=== PATIENT | female | born 1985 | race Caucasian/White ===

== ENCOUNTER → 2018-11-30 | Outpatient (CLI) | payer OTHER ==
[2018-11-30 18:29] LABS: BASO % 0.4 % (0.0-1.0); EOS # 0.3 10^3/uL (0.0-0.50); EOS % 4.9 % (0.0-3.0); HEMATOCRIT 36.5 % (36.0-47.0); HEMOGLOBIN 11.5 g/dl (12.0-15.5); LYMPH # 0.9 10^3/uL (1.5-4.5); LYMPH % 16.4 % (24.0-44.0); MEAN CORPUSCULAR HEMOGLOBIN 29.3 pg (27.0-33.0); MEAN CORPUSCULAR HGB CONC 31.5 g/dl (32.0-36.5); MEAN CORPUSCULAR VOLUME 93.1 fl (80.0-96.0); MONO # 0.4 10^3/uL (0.0-0.8); MONO % 7.2 % (0.0-5.0); NEUTROPHILS % 70.6 % (36.0-66.0); PLATELET COUNT, AUTOMATED 189 10^3/uL (150-450); RED BLOOD COUNT 3.92 10^6/uL (4.00-5.40); WHITE BLOOD COUNT 5.7 10^3/uL (4.0-10.0)
[2018-11-30 21:37] LABS: CHLAMYDIA DNA AMPLIFICATION NEGATIVE (NEGATIVE); GC DNA AMPLIFICATION NEGATIVE (NEGATIVE)
[2018-12-01 12:43] LABS: HIV 1&2 SCREEN CENTAUR NEGATIVE (NEGATIVE); RUBELLA IgG QUALITATIVE IMMUNE (IMMUNE)
[2018-12-01 12:47] LABS: HEPATITIS C VIRUS ABY INDEX > 11.0 INDEX (<0.8)
== END ==
LOC: M SMT 14:05
PROVIDERS: ATTEND Advanced Practice Midwife
DX: Z34.82 Encounter for supervision of other normal pregnancy, second trimester (principal); Z36.89 Encounter for other specified antenatal screening

== ENCOUNTER → 2018-12-04 | Outpatient (CLI) | payer OTHER ==
--- NOTE | 2018-12-05 05:22 | REP ---
Clinical: Anatomical evaluation. Comparison: None . Findings: Examination demonstrates a single live intrauterine in cephalic presentation. motion is identified by technologist. Placenta is noted fundal and grade one without evidence for placenta previa or abruption. Amniotic fluid volume is normal. Cervix measures 3.6 cm in length and appears closed. No evidence for nuchal cord. Gestational age by LMP 24 weeks 0 days with MOLLY 03/26/2019 . Gestational age by current measurements 24 weeks 1 day with MOLLY eight 03/25/2019 . FHR equals 147 beats per minute. BPD 5.8 cm 23 weeks 4-day HC 22.0 cm 24 weeks 0 days AC 20.0 cm 24 weeks 5-day FL 4.2 cm 23 weeks 5 days HL 4.1 cm 24 weeks 4 days HC/AC ratio 1.10 Estimated weight 670 grams ( 50th percentile). Anatomical assessment demonstrates normal structures including cranium, choroid plexus, cavum, cerebellum/posterior fossa, facial features, lungs, diaphragm, stomach, cord insertion/three-vessel cord, kidneys/bladder, and extremities. Limited evaluation of the heart/ventricular outflow tracts and spine noted. Impression: 1. Single live intrauterine in cephalic presentation demonstrating appropriate interval growth. 2. Anatomical limitations as noted above. Electronically Signed by Elie Perez MD 12/05/2018 05:13 A
== END ==
LOC: M RAD 14:19
PROVIDERS: ATTEND Advanced Practice Midwife
DX: Z34.82 Encounter for supervision of other normal pregnancy, second trimester (principal); Z3A.24 24 weeks gestation of pregnancy

== ENCOUNTER → 2019-01-02 | Outpatient (CLI) | payer OTHER ==
[2019-01-02 17:51] LABS: HEMATOCRIT 36.5 % (36.0-47.0); HEMOGLOBIN 11.7 g/dl (12.0-15.5); MEAN CORPUSCULAR HEMOGLOBIN 29.5 pg (27.0-33.0); MEAN CORPUSCULAR HGB CONC 32.1 g/dl (32.0-36.5); MEAN CORPUSCULAR VOLUME 91.9 fl (80.0-96.0); PLATELET COUNT, AUTOMATED 188 10^3/uL (150-450); RED BLOOD COUNT 3.97 10^6/uL (4.00-5.40); WHITE BLOOD COUNT 6.7 10^3/uL (4.0-10.0)
== END ==
LOC: M SMT 13:43
PROVIDERS: ATTEND Advanced Practice Midwife
DX: Z34.82 Encounter for supervision of other normal pregnancy, second trimester (principal); Z3A.00 Weeks of gestation of pregnancy not specified; L29.9 Pruritus, unspecified

== ENCOUNTER → 2019-01-02 | Outpatient (CLI) | payer OTHER ==
[2019-01-02 17:52] LABS: ALT/SGPT 214 U/L (12-78); BILIRUBIN,TOTAL 0.2 MG/DL (0.2-1.0); BLOOD UREA NITROGEN 7 MG/DL (7-18); CALCIUM LEVEL 8.4 MG/DL (8.5-10.1); CARBON DIOXIDE LEVEL 26 MEQ/L (21-32); CHLORIDE LEVEL 108 MEQ/L (98-107); CREATININE FOR GFR 0.57 MG/DL (0.55-1.30); GLOMERULAR FILTRATION RATE > 60.0 (>60); GLUCOSE, FASTING 97 MG/DL (70-100); POTASSIUM SERUM 3.9 MEQ/L (3.5-5.1); SODIUM LEVEL 141 MEQ/L (136-145); TOTAL PROTEIN 6.5 GM/DL (6.4-8.2)
[2019-01-02 17:53] LABS: ALBUMIN 2.6 GM/DL (3.2-5.2)
[2019-01-03 09:55] LABS: HEPATITIS B SURFACE ANTIBODY POSITIVE (POSITIVE)
[2019-01-08 08:38] LABS: HEPATITIS A IgG TOTAL Positive (Negative); HEPATITIS B CORE ANTIBODY IGG Negative (Negative); HEPATITIS C QUANTITATION 957980 IU/mL (.); HEPATITIS C VIRUS GENOTYPE 3 (.)
== END ==
LOC: M SMT 13:45
PROVIDERS: ATTEND Advanced Practice Midwife
DX: O26.613 Liver and biliary tract disorders in pregnancy, third trimester (principal); Z3A.00 Weeks of gestation of pregnancy not specified

== ENCOUNTER → 2019-01-19 | Outpatient (CLI) | payer OTHER ==
--- NOTE | 2019-01-19 10:38 | REP ---
Obstetric ultrasound, third trimester for growth and follow-up of anatomy: There is a single intrauterine gestation in a vertex presentation. There is movement and cardiac activity. The heart rate is 143 beats per minute. The placenta is fundal. There is no placenta previa or abruptio. The placenta is grade II. The amniotic fluid volume subjectively is normal. The fluid at this 12.5 (8.9 - 23.6). The cervix is 3.6 cm length. Gestational age by today's ultrasound is 30 weeks 4 days/MOLLY 03/26/2019. Gestational age by the first ultrasound is 30 weeks 5 days/MOLLY 03/25/2019. Gestational age by LMP is 30 weeks 4 days/MOLLY 03/26/2019. weight is 1702 grams/3 pounds, 12 ounces. This is the 53rd percentile for 30 weeks 4 days. Umbilical artery Doppler assessment: S/D ratio 3.19 (2.30-3.30) Resistive Index 0.69 (0.59-0.75 Diastolic Velocity 22.9 (>10 cm/sec) On the prior study there was suboptimal demonstration of the heart, cardiac ventricular outflow tracts and spine. On the study today the four-chamber view of the heart and the cardiac right and left ventricular outflow tracts are optimally demonstrated and are unremarkable. The spine is again suboptimally demonstrated. Electronically Signed by Lb Andrew MD 01/19/2019 10:29 A
== END ==
LOC: M RAD 08:40
PROVIDERS: ATTEND Advanced Practice Midwife
DX: Z34.81 Encounter for supervision of other normal pregnancy, first trimester (principal)

== ENCOUNTER → 2019-02-09 | Outpatient (CLI) | payer OTHER ==
[~2019-02-09] MED LIST: BUPR8SUB SL; PRENTAB9 PO; URSO300C3 PO; ZANT150T40 PO
--- NOTE | 2019-02-10 09:59 | REP ---
OB ULTRASOUND: Real-time sonographic evaluation of the gravid uterus is performed. There is a single living intrauterine gestation, estimated gestational age 33 weeks 4 days, EDC 03/26/2019. Today's measurements indicate appropriate growth. BPD 85 mm = 34 weeks 1 day, 58th percentile HC 311 mm = 34 weeks 6 days, 68th percentile AC 307 mm = 34 weeks 4 days, 65th percentile FL 65 mm = 33 weeks 3 days, 47th percentile HC/AC ratio 1.02, within normal range. Estimated weight 2383 grams, 58th percentile. Cervix is closed and measures 3.6 cm in length. heart rate 150 beats per minute. Amniotic fluid within normal limits. YONATAN 14.4 within normal range of 8.2 to 24.7. S/D ratio 2.92 and RI 0.66 within normal range. Visualized anatomy includes stomach, three vessel cord, kidneys and bladder which are grossly unremarkable. position breech. Placenta is anterior and fundal and grade 2 with no previa or abruption. Electronically Signed by Lb Montiel MD 02/12/2019 11:41 A
== END ==
LOC: M RAD 16:01
PROVIDERS: ATTEND Advanced Practice Midwife
DX: O99.613 Diseases of the digestive system complicating pregnancy, third trimester (principal); K83.1 Obstruction of bile duct; Z3A.33 33 weeks gestation of pregnancy

== ENCOUNTER → 2019-02-15 | Outpatient (CLI) | payer OTHER ==
--- NOTE | 2019-02-15 16:28 | REP ---
Obstetric sonography: History: Biophysical profile with amniotic fluid. Findings: Limited obstetric sonography is performed. A single living intrauterine gestation is seen in a vertex lie. Amniotic fluid is subjectively normal. An anterofundal grade 2 placenta is seen without evidence of previa or abruption. The S/D ratio in the umbilical cord artery by Doppler is normal at 2.55. Biophysical profile score is 8 out of a possible 8. Amniotic fluid index is 13.7 cm which is normal. Electronically Signed by Antwan Garcia MD 02/15/2019 05:41 P
== END ==
LOC: M RAD 14:52
PROVIDERS: ATTEND Obstetrics & Gynecology
DX: O26.619 Liver and biliary tract disorders in pregnancy, unspecified trimester (principal); K83.1 Obstruction of bile duct; Z3A.00 Weeks of gestation of pregnancy not specified

== ENCOUNTER → 2019-03-01 | Outpatient (CLI) | payer OTHER | LOC: M SMT 13:47 | PROVIDERS: ATTEND Advanced Practice Midwife | DX: O09.43 Supervision of pregnancy with grand multiparity, third trimester (principal); Z3A.00 Weeks of gestation of pregnancy not specified ==

== ENCOUNTER 2019-03-06 07:28 | Inpatient (IN) | payer OTHER ==
[~2019-03-06] VITALS: Ht 157.5 cm; Wt 64.3 kg
[2019-03-06] VITALS (32 sets, daily range): BP systolic 85–137; BP diastolic 49–73
[2019-03-06] MEDS ORDERED: URSO300C3 PO (07:50)
[2019-03-06] MEDS ORDERED: ZANT150T40 PO (07:50)
[2019-03-06] MEDS ORDERED: PRENTAB9 PO (07:50)
[2019-03-06] MEDS ORDERED: BUPR8SUB SL (08:36)
[2019-03-06 08:49] LABS: HEMOGLOBIN 11.5 g/dl (12.0-15.5); MEAN CORPUSCULAR HEMOGLOBIN 29.7 pg (27.0-33.0); MEAN CORPUSCULAR HGB CONC 33.8 g/dl (32.0-36.5); MEAN CORPUSCULAR VOLUME 87.9 fl (80.0-96.0); PLATELET COUNT, AUTOMATED 178 10^3/uL (150-450); RED BLOOD COUNT 3.87 10^6/uL (4.00-5.40); WHITE BLOOD COUNT 8.3 10^3/uL (4.0-10.0)
[2019-03-06] MEDS ORDERED: miSOPROStol 50 MCG 1/2 TAB (S0191) PO ONE (10:00)
[2019-03-06 12:21] LABS: ALBUMIN 2.6 GM/DL (3.2-5.2); ALT/SGPT 40 U/L (12-78); BILIRUBIN,TOTAL 0.3 MG/DL (0.2-1.0); BLOOD UREA NITROGEN 6 MG/DL (7-18); CARBON DIOXIDE LEVEL 25 MEQ/L (21-32); CHLORIDE LEVEL 108 MEQ/L (98-107); CREATININE FOR GFR 0.64 MG/DL (0.55-1.30); GLOMERULAR FILTRATION RATE > 60.0 (>60); GLUCOSE, FASTING 106 MG/DL (70-100); SODIUM LEVEL 139 MEQ/L (136-145); TOTAL PROTEIN 6.4 GM/DL (6.4-8.2)
--- NOTE | 2019-03-06 13:23 | HPE ---
DATE OF ADMISSION: 03/06/2019 The patient is a 33-year-old female who is a 7, para 5-1-0-6, who is 37 weeks 1 day gestation with an expected date of delivery (MOLLY) of 03/26/2019 based off of her last menstrual period and consistent with her second trimester ultrasound. The patient initiated care in her second trimester with [facility]. The patient's has been complicated by history of drug abuse for which she is taking Subutex 8 mg three times a day for. It has also been complicated by diagnosis of hepatitis C. The patient reports she was diagnosed her last , but has never seen anybody for her hepatitis. The patient is also complicated by being a grand multiparous patient and being late to care and being diagnosed with cholestasis at 28 weeks gestation. The patient has been taking Ursodiol 500 mg three times a day starting at 28 weeks. The patient presents to labor and delivery for an induction of labor due to cholestasis. She reports active movement. She reports occasional contractions. She denies vaginal bleeding or leaking of fluid. She still does report some itching at this point. PAST PREGNANCIES: In November 2005, she had an uncomplicated vaginal delivery of a living male at 39 weeks weighing 6 pounds 5 ounces. In April 2007, she had a vaginal delivery of a living female at 36 weeks weighing 6 pounds, complicated by labor. In May 2008, she had a vaginal delivery of a living male at 39 weeks weighing 6 pounds 5 ounces. In May 2010, she had a vaginal delivery of a living male weighing 7 pounds 5 ounces at 39 weeks gestation. In April 2014, she had a vaginal delivery of a living male weighing 5 pounds 12 ounces at 39 weeks. In October 2017, she had a vaginal delivery of a living female weighing 6 pounds 15 ounces at 41 weeks. LABS: Patient's blood type is A positive. Her antibody screen is negative. Her hemoglobin and hematocrit in the first trimester were 11.5 and 36.5 with platelets of 189. Her rubella is immune. Her VDRL is nonreactive. Her urine culture is no growth. Hepatitis B surface antigen is negative. HIV is negative. Hepatitis C is positive. Gonorrhea and Chlamydia are both negative. Her hepatitis C virus RNA qualitative is positive. Her diabetic screen is 91. Her hemoglobin and hematocrit in the late second trimester/early third trimester was 11.7 and 36.5 with platelets of 188. Her GBS is negative. Her AST and ALT are elevated. Her bile acids were 27.2. MEDICAL PROBLEMS: Positive hepatitis C. SURGICAL HISTORY: No surgical procedures. FAMILY HISTORY: Mother has asthma and hypertension. Her son has a neuroblastoma. SOCIAL HISTORY: Her highest grade completed is 11th grade. She is single. She is unemployed. She is a current every day smoker. She denies alcohol abuse or use. 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 She sees Dr. Frank who prescribes her Subutex 8 mg three times a day. She has no sexually transmitted infections. She denies current use of IV drug use or illicit drug use or abuse. heart rate is 120, moderate variability, positive accelerations, no decelerations. Contractions are irregular. VITAL SIGNS: Blood pressure 120/60. Heart rate 94. Respiratory rate 18. Temperature 98.3. STERILE CERVICAL EXAM: One cm dilated, 75% effaced, -2 station, posterior cervix, soft, no bloody show. PHYSICAL EXAMINATION: General: Alert and oriented times three. Respiratory: Regular rate with no use of accessory muscles. Cardiovascular: Regular rate and rhythm. No murmurs. No rubs. No gallops. Abdomen: Gravid. Nontender to touch to palpation. Cephalic presentation noted via Le[place] and vaginal exam. Lower Extremities: Generalized edema with no pitting, no clonus. ASSESSMENT: Intrauterine at 37 weeks and 1 day gestation, Category 1 heart rate tracing, cholestasis, GBS negative. PLAN: Admit patient to labor and delivery. Saline lock and labs per unit protocol. CMP ordered to review liver enzyme levels. Out of bed ad chung. Regular diet. Will switch to clear liquid diet once induction medication is switched to IV Pitocin. Cytotec one tablet ordered by mouth. Anesthesia consult per patient's request. Anticipate cervical ripening. Plan IV Pitocin after one dose of Cytotec. Dr. Nicholson is aware of patient in the department and agrees with the plan of care. Anticipate spontaneous vaginal delivery.
--- NOTE | 2019-03-06 14:11 | IPNPDOC ---
Obstetrical Progress Note Date of Service Mar 06, 2019 Subjective Patient reports feeling contractions and is breathing/coping with them. Objective Vital Signs Date Time Temp Pulse Resp B/P (MAP) Pulse Ox O2 Delivery O2 Flow Rate FiO2 03/06/19 12:42 98.3 75 18 120/57 (78) Assessment Heart Rate (FHR): 130 Variability: Moderate Accelerations: Positive Decelerations: None Heart Rate Tracing: Category I Tocometer Contractions: Yes Frequency: every 1-3 min. Sterile Vaginal Examination Dilation: 2cm Effacement (%): other (75%) Station: -2 Cervical Consistency: Soft Cervical Position: Posterior Postion/Presentation: Cephalic presentation Assessment and Plan EGA at Admission: 37.1 Status: Reassuring Group B Streptococcus: Negative Anticipate: Vaginal Delivery Additional Comments IV Pitocin ordered and to be started per order. KELLEY WHITLEY CNM Mar 06, 2019 14:11
[2019-03-06] MEDS ORDERED: OXYTOCIN DRIP 30 UNITS in APPROPRIATE DILUENT 1 EA IV SCH ×2 (14:15→21:56)
[2019-03-06] MEDS: LR 1,000 ML IV SCH ×2 (14:27→16:51)
[2019-03-06] MEDS ORDERED: FENTANYL 2MCG/ML ROPIVACAINE 0.2% IN 0.9% NACL 100ML IVBAG As Ordered ONE (15:34)
[2019-03-06] MEDS: BUPRENORPHINE 8 MG SL SCH ×2 (16:00→21:33)
[2019-03-06] MEDS ORDERED: REFRIGERATOR IV KEYS XX PRN (16:00)
[2019-03-06] MEDS ORDERED: NALOXONE INJ 0.4 MG/1 ML VIAL (J2310) IV PRN (16:00)
[2019-03-06] MEDS ORDERED: EPIDURAL/PCA KEYS XX PRN (16:00)
[2019-03-06] MEDS ORDERED: diphenhydrAMINE INJ 50MG/ML VIAL (J1200) IV PRN (16:00)
[2019-03-06] MEDS ORDERED: ROPIVACAINE HCL IVBAG 200 ML EPIDURAL SCH (16:00)
[2019-03-06] MEDS ORDERED: EPIDURAL COMMENT XX SCH (16:00)
[2019-03-06] MEDS ORDERED: ONDANSETRON 4MG/2ML VIAL (J2405) IV PRN (16:00)
[2019-03-06] MEDS ORDERED: ePHEDrine SULFATE 25 MG/5 ML(5MG/ML) SYRINGE IV PRN (16:15)
--- NOTE | 2019-03-06 18:13 | IPNPDOC ---
Text Note Date of Service The patient was seen on 03/06/19. NOTE S: Patient comfortable with epidural O: SVE: 5/50/-2 FHR: 130 bpm, mod variability, accels, no decels, cat 1 tracing TOCO: CTX q2-3 min A/P: 33 yo at 37.1 weeks EGA, IOL secondary to cholestasis -continue Pitocin -AROM at 1804 - status reassuring -Anticipate VS,Fishbone, I+O VS, Fishbone, I+O Laboratory Tests 03/06/19 08:28 Red Blood Count 3.87 L, Mean Corpuscular Volume 87.9, Mean Corpuscular Hemoglobin 29.7, Mean Corpuscular Hemoglobin Concent 33.8, Red Cell Distribution Width 13.8, Calcium Level 9.0, Aspartate Amino Transf (AST/SGOT) 42 H, Alanine Aminotransferase (ALT/SGPT) 40, Alkaline Phosphatase 262 H, Total Bilirubin 0.3, Total Protein 6.4, Albumin 2.6 L Vital Signs Date Time Temp Pulse Resp B/P (MAP) Pulse Ox O2 Delivery O2 Flow Rate FiO2 03/06/19 16:58 71 108/57 (74) 03/06/19 15:27 97.9 18 GME ATTESTATION GME ATTESTATION My faculty preceptor for this patient encounter was physically present during the encounter and was fully available. All aspects of the patient interview, examination, medical decision making process, and medical care plan development were reviewed and approved by the faculty preceptor. The faculty preceptor is aware and concurs with the plan as stated in the body of this note and will attest to such by his/her cosignature. ANDRAE LOVE DO Mar 06, 2019 18:13
[2019-03-06] MEDS ORDERED: IBUPROFEN 600 MG TAB PO PRN ×2 (20:30→22:00)
[2019-03-06] MEDS ORDERED: DIBUCAINE 1% OINTMENT 30GM TOP PRN (22:00)
[2019-03-06] MEDS ORDERED: RHOGAM 300 MCG (1500 IU) INJ (J2790) IM SCH (22:00)
[2019-03-06] MEDS ORDERED: DOCUSATE SODIUM 100 MG CAP PO PRN (22:00)
[2019-03-06] MEDS ORDERED: ACETAMINOPHEN TAB 650MG DOSE (2X325MG) PO PRN (22:00)
[2019-03-06] MEDS ORDERED: METHYLERGONOVINE MALEATE 0.2 MG TAB PO PRN (22:00)
[2019-03-06] MEDS ORDERED: ANUSOL HC CREAM 30GM TOP PRN (22:00)
[2019-03-06] MEDS ORDERED: MEASLES,MUMPS,RUBELLA VACCINE INJ (MMR-II) (90707) SC SCH (22:00)
[2019-03-06] MEDS: ACETAMINOPHEN 500 MG TAB PO PRN (22:45)
[2019-03-07] MEDS: IBUPROFEN 800 MG TAB PO PRN ×2 (04:13→13:17)
[2019-03-07 05:35] VITALS: BP 100/52
--- NOTE | 2019-03-07 06:20 | IPNPDOC ---
Text Note Date of Service The patient was seen on 03/07/19. NOTE Day 1 s/p ; uncomplicated S: pain well controlled, lochia and bleeding decreasing, voiding spontaneously, ambulating without assistance, tolerating regular diet. Breast feeding. O: vitals stable Heart: RRR, no murmurs Lungs: CTA bilaterally Abd: fundus firm at U-2 Ext: no edema, nontender, negative Jay's bilaterally A/P: 33 yo G7 now P7. day 1 s/p Hemodynamically stable, afebrile, adequate pain control. Recovering well. -Routine postoperative care and advancement. -Anticipate discharge tomorrow VS,Fishbone, I+O VS, Fishbone, I+O Laboratory Tests 03/06/19 08:28 Red Blood Count 3.87 L, Mean Corpuscular Volume 87.9, Mean Corpuscular Hemoglobin 29.7, Mean Corpuscular Hemoglobin Concent 33.8, Red Cell Distribution Width 13.8, Calcium Level 9.0, Aspartate Amino Transf (AST/SGOT) 42 H, Alanine Aminotransferase (ALT/SGPT) 40, Alkaline Phosphatase 262 H, Total Bilirubin 0.3, Total Protein 6.4, Albumin 2.6 L Vital Signs Date Time Temp Pulse Resp B/P (MAP) Pulse Ox O2 Delivery O2 Flow Rate FiO2 03/07/19 05:35 98.2 56 16 100/52 (68) 03/06/19 22:30 96 I&O- Last 24 Hours up to 6 AM 03/07/19 06:00 Intake Total 1610 ml Output Total 1750 ml Balance -140 ml GME ATTESTATION GME ATTESTATION My faculty preceptor for this patient encounter was physically present during the encounter and was fully available. All aspects of the patient interview, examination, medical decision making process, and medical care plan development were reviewed and approved by the faculty preceptor. The faculty preceptor is aware and concurs with the plan as stated in the body of this note and will attest to such by his/her cosignature. ANDRAE LOVE DO Mar 07, 2019 06:20
[2019-03-07] MEDS: ACETAMINOPHEN 500 MG TAB PO PRN ×2 (07:40→17:33)
[2019-03-07] MEDS ORDERED: BUPRENORPHINE/NALOXONE 8-2MG SUBLINGUAL TABLET(SUBOXONE) As Ordered ONE (09:02)
[2019-03-07] MEDS: BUPRENORPHINE 8 MG SL SCH ×3 (09:20→20:25)
[2019-03-07] MEDS: PRENATAL VITAMINS CHEWABLE TABLET PO SCH (09:20)
--- NOTE | 2019-03-07 09:51 | DN ---
DATE: 03/06/2019 TIME: 1926 STATUS: Delivered. Spontaneous vaginal delivery. PROVIDER: Tara Navarrete CNM, ABEBA ANESTHESIA: Epidural. ESTIMATED BLOOD LOSS: 250 mL. FINDINGS: Male, 6 pounds 7 ounces, 2918 grams, Apgars 7/9, cholestasis, positive hepatitis C, history of drug abuse using Subutex. The patient is a 33-year-old female who is now a 7, para 7-0-0-7, at 37 weeks 1 day gestation who presented to labor and delivery for an induction of labor due to cholestasis. She received one dose of Cytotec and IV Pitocin for induction of labor. She received an epidural for pain management. She progressed to fully dilated at 1918 and pushed to a living male at 192 in left occiput anterior (UZIEL) position with restitution to left occiput transverse (LOT). The anterior shoulder delivered with ease and the corpus immediately followed. The baby was placed on the maternal abdomen active and crying. The cord was clamped times two after pulsations ceased and cut by the father of the baby. A three vessel cord was noted. The placenta delivered spontaneously and intact at 1932. Uterine hemostasis was achieved via rapid infusion of IV Pitocin and fundal massage. The vagina, cervix, perineum was inspected and found to be intact. Mom plans to breast feed. They are uncertain on 's name. The baby was transferred to the intensive care unit for further transitioning time due to some respiratory distress. As of now, the baby is in stable condition and mother is in stable condition. All counts of instruments and sponges were correct.
[2019-03-07 18:00] VITALS: BP 101/58
[2019-03-08 06:00] VITALS: BP 102/60
[2019-03-08] MEDS: BUPRENORPHINE 8 MG SL SCH (08:39)
[2019-03-08] MEDS: PRENATAL VITAMINS CHEWABLE TABLET PO SCH (08:39)
== END 2019-03-08 10:15 | disposition home or self-care (01) | DRG 560 ==
LOC: M LDI 07:28 → M OBS 22:15
PROVIDERS: ADMIT Advanced Practice Midwife; ATTEND Advanced Practice Midwife
PROC: 10E0XZZ Delivery of Products of Conception, External Approach (ICD-10-PCS; principal; 2019-03-06)
PROC: 10907ZC Drainage of Amniotic Fluid, Therapeutic from Products of Conception, Via Natural or Artificial Opening (ICD-10-PCS; 2019-03-06)
PROC: 3E0P7GC Introduction of Other Therapeutic Substance into Female Reproductive, Via Natural or Artificial Opening (ICD-10-PCS; 2019-03-06)
DX: O26.613 Liver and biliary tract disorders in pregnancy, third trimester (principal); O99.324 Drug use complicating childbirth; O98.42 Viral hepatitis complicating childbirth; Z3A.37 37 weeks gestation of pregnancy; O99.334 Smoking (tobacco) complicating childbirth; F11.11 Opioid abuse, in remission; F17.210 Nicotine dependence, cigarettes, uncomplicated; B19.20 Unspecified viral hepatitis C without hepatic coma; Z37.0 Single live birth

== ENCOUNTER → 2020-07-17 | Outpatient (REF) | payer OTHER ==
[2020-07-17 13:17] LABS: BASO % 0.5 % (0.0-1.0); EOS # 0.5 10^3/uL (0.0-0.5); EOS % 6.2 % (0.0-3.0); HEMATOCRIT 43.4 % (36.0-47.0); HEMOGLOBIN 13.8 g/dl (12.0-15.5); LYMPH # 1.4 10^3/uL (1.5-5.0); MEAN CORPUSCULAR HEMOGLOBIN 29.2 pg (27.0-33.0); MEAN CORPUSCULAR HGB CONC 31.8 g/dl (32.0-36.5); MEAN CORPUSCULAR VOLUME 91.9 fl (80.0-96.0); MONO # 0.3 10^3/uL (0.0-0.8); MONO % 4.4 % (0.0-5.0); NEUTROPHILS # 5.3 10^3/uL (1.5-8.5); NEUTROPHILS % 70.5 % (36.0-66.0); PLATELET COUNT, AUTOMATED 215 10^3/uL (150-450); RED BLOOD COUNT 4.72 10^6/uL (4.00-5.40); WHITE BLOOD COUNT 7.5 10^3/uL (4.0-10.0)
[2020-07-17 13:33] LABS: ALT/SGPT 16 U/L (12-78); BILIRUBIN,TOTAL 0.3 MG/DL (0.2-1.0); BLOOD UREA NITROGEN 10 MG/DL (7-18); CARBON DIOXIDE LEVEL 29 MEQ/L (21-32); CHLORIDE LEVEL 108 MEQ/L (98-107); CHOLESTEROL LEVEL 209 MG/DL (<200); CHOLESTEROL RISK RATIO 3.265 (<5); CREATININE FOR GFR 0.68 MG/DL (0.55-1.30); GLOMERULAR FILTRATION RATE > 60.0 (>60); GLUCOSE, FASTING 89 MG/DL (70-100); HDL CHOLESTEROL 64 MG/DL (>40); LDL CHOLESTEROL 130 MG/DL (<100); NON-HDL-C 145 MG/DL; SODIUM LEVEL 141 MEQ/L (136-145); TOTAL PROTEIN 7.6 GM/DL (6.4-8.2); TRIGLYCERIDES LEVEL 74 MG/DL (<150); URIC ACID 4.9 MG/DL (2.6-6.0)
[2020-07-17 13:53] LABS: ERYTHROCYTE SEDIMENTATION RATE 17 mm/hr (0-20)
== END ==
LOC: M LAB REF 12:28
PROVIDERS: ATTEND Family Medicine Addiction Medicine
DX: Z00.00 Encounter for general adult medical examination without abnormal findings (principal); M25.50 Pain in unspecified joint

== ENCOUNTER → 2022-04-29 | Outpatient (REF) | payer OTHER ==
[2022-04-29 23:17] LABS: GC DNA AMPLIFICATION POSITIVE (NEGATIVE)
== END ==
LOC: M SFHCWAGY 16:56
PROVIDERS: ATTEND Advanced Practice Midwife
DX: Z11.3 Encounter for screening for infections with a predominantly sexual mode of transmission (principal)

== ENCOUNTER → 2022-11-09 | Outpatient (CLI) | payer OTHER | LOC: M WHC 14:53 | PROVIDERS: ATTEND Specialist | DX: Z34.82 Encounter for supervision of other normal pregnancy, second trimester (principal); Z53.9 Procedure and treatment not carried out, unspecified reason ==

== ENCOUNTER → 2022-11-09 | Outpatient (CLI) | payer OTHER ==
[2022-11-09 17:57] LABS: HEMATOCRIT 36.4 % (36.0-47.0); HEMOGLOBIN 12.3 g/dl (12.0-15.5); MEAN CORPUSCULAR HEMOGLOBIN 31.1 pg (27.0-33.0); MEAN CORPUSCULAR HGB CONC 33.8 g/dl (32.0-36.5); MEAN CORPUSCULAR VOLUME 92.2 fl (80.0-96.0); PLATELET COUNT, AUTOMATED 189 10^3/uL (150-450); RED BLOOD COUNT 3.95 10^6/uL (4.00-5.40); WHITE BLOOD COUNT 5.3 10^3/uL (4.0-10.0)
[2022-11-09 19:01] LABS: HIV 1&2 SCREEN CENTAUR NEGATIVE (NEGATIVE)
[2022-11-09 19:11] LABS: HEPATITIS C VIRUS ABY INDEX > 11.0 INDEX (<0.8)
[2022-11-09 19:19] LABS: GC DNA AMPLIFICATION NEGATIVE (NEGATIVE)
== END ==
LOC: M PLALAB 14:59
PROVIDERS: ATTEND Specialist
DX: Z34.82 Encounter for supervision of other normal pregnancy, second trimester (principal)

== ENCOUNTER → 2022-12-08 | Outpatient (CLI) | payer OTHER | LOC: M WHC 14:58 | PROVIDERS: ATTEND Specialist | DX: Z34.82 Encounter for supervision of other normal pregnancy, second trimester (principal); Z3A.20 20 weeks gestation of pregnancy ==

== ENCOUNTER → 2023-01-31 | Outpatient (CLI) | payer OTHER ==
[~2023-01-31] VITALS: Ht 154.9 cm; Wt 71.8 kg
[~2023-01-31] MED LIST changes: +BUPR1SUB5 SL; +HOME MED LIST COMPLETE! XX SCH
[2023-01-31 19:16] VITALS: BP 147/73; O2SAT 96
[2023-01-31 21:01] VITALS: BP 124/66
[2023-02-01 00:58] LABS: GC DNA AMPLIFICATION NEGATIVE (NEGATIVE)
== END ==
LOC: M LDO 18:54
PROVIDERS: ATTEND Advanced Practice Midwife
DX: O36.8130 Decreased fetal movements, third trimester, not applicable or unspecified (principal); Z3A.30 30 weeks gestation of pregnancy
CPT/HCPCS: 59025; 76816; 76820; 81001; 87661; 87810; 87850; G0463

== ENCOUNTER → 2023-02-22 | Outpatient (CLI) | payer OTHER ==
[~2023-02-22] MED LIST changes: -HOME MED LIST COMPLETE! XX SCH
[2023-02-22 18:07] LABS: HEMATOCRIT 33.7 % (36.0-47.0); HEMOGLOBIN 10.8 g/dl (12.0-15.5); MEAN CORPUSCULAR HEMOGLOBIN 29.2 pg (27.0-33.0); MEAN CORPUSCULAR VOLUME 91.1 fl (80.0-96.0); PLATELET COUNT, AUTOMATED 186 10^3/uL (150-450); WHITE BLOOD COUNT 6.7 10^3/uL (4.0-10.0)
== END ==
LOC: M PLALAB 14:15
PROVIDERS: ATTEND Obstetrics & Gynecology
DX: O09.43 Supervision of pregnancy with grand multiparity, third trimester (principal); Z3A.00 Weeks of gestation of pregnancy not specified

== ENCOUNTER → 2023-03-17 | Outpatient (REF) | payer OTHER | LOC: M PLALAB 08:00 | PROVIDERS: ATTEND Advanced Practice Midwife | DX: Z34.80 Encounter for supervision of other normal pregnancy, unspecified trimester (principal); Z53.8 Procedure and treatment not carried out for other reasons ==

== ENCOUNTER → 2023-03-17 | Outpatient (CLI) | payer MEDICAID, OTHER ==
[2023-03-17 11:09] LABS: ALBUMIN 2.4 G/DL (3.2-5.2); BILIRUBIN,DIRECT 0.1 MG/DL (<0.4); BILIRUBIN,TOTAL 0.4 MG/DL (0.3-1.2); TOTAL PROTEIN 5.6 G/DL (5.7-8.2)
== END ==
LOC: M PLALAB 08:43
PROVIDERS: ATTEND Advanced Practice Midwife
DX: Z34.83 Encounter for supervision of other normal pregnancy, third trimester (principal)

== ENCOUNTER 2023-04-04 07:50 | Inpatient (IN) | payer OTHER, MEDICAID ==
[~2023-04-04] VITALS: Ht 157.5 cm; Wt 73.8 kg
[2023-04-04] VITALS (13 sets, daily range): BP systolic 103–139; BP diastolic 57–76; O2SAT 98
[2023-04-04] MEDS ORDERED: [UNRECOGNIZED DRUG - OTHER] SL (08:09)
[2023-04-04] MEDS ORDERED: LACTATED RINGER'S 1000 ML IV STA (08:11)
[2023-04-04] MEDS ORDERED: subutex SL (08:12)
[2023-04-04] MEDS ORDERED: OXYTOCIN INJ 10UNITS/ML 1ML VIAL IM PRN (08:15)
[2023-04-04] MEDS ORDERED: LIDOCAINE 1% MDV 20ML VIAL INFIL PRN (08:15)
[2023-04-04] MEDS ORDERED: HOME MED LIST COMPLETE! XX SCH (08:15)
[2023-04-04] MEDS ORDERED: TRANEXAMIC ACID INJection 1,000 MG in NS 100 ML IV PRN (08:15)
[2023-04-04] MEDS ORDERED: CARBOPROST TROMETHAMINE 250 MCG/ML AMP IM PRN (08:15)
[2023-04-04] MEDS ORDERED: OXYTOCIN DRIP 30 UNITS in IV 1 EA IV PRN (08:15)
[2023-04-04] MEDS ORDERED: METHYLERGONOVINE MALEATE 0.2MG/ML 1ML VIAL IM PRN (08:15)
[2023-04-04] MEDS ORDERED: PILL CUTTER 1 EACH XX PRN (09:00)
[2023-04-04] MEDS ORDERED: BUPR8SUB SL (09:02)
[2023-04-04] MEDS: miSOPROStol 50MCG 1/2 TABLET PO SCH ×2 (09:32→13:56)
[2023-04-04 09:42] LABS: HEMATOCRIT 31.9 % (36.0-47.0); MEAN CORPUSCULAR HEMOGLOBIN 26.8 pg (27.0-33.0); MEAN CORPUSCULAR HGB CONC 31.3 g/dl (32.0-36.5); MEAN CORPUSCULAR VOLUME 85.5 fl (80.0-96.0); PLATELET COUNT, AUTOMATED 185 10^3/uL (150-450); RED BLOOD COUNT 3.73 10^6/uL (4.00-5.40); WHITE BLOOD COUNT 7.1 10^3/uL (4.0-10.0)
[2023-04-04] MEDS ORDERED: LR 1,000 ML IV ONE (10:55)
[2023-04-04] MEDS: BUPRENORPHINE HCL 8MG SUBINGUAL TABLET SL SCH ×2 (12:01→17:55)
[2023-04-04] MEDS ORDERED: MOM 30ML SUSPENSION UDC PO PRN (18:40)
[2023-04-04] MEDS ORDERED: RHOGAM 300MCG (1500IU) INJ IM SCH (18:40)
[2023-04-04] MEDS ORDERED: DIBUCAINE 1% OINTMENT 30GM TOP PRN (18:40)
[2023-04-04] MEDS ORDERED: DOCUSATE SODIUM 100MG CAPSULE PO PRN (18:40)
[2023-04-04] MEDS ORDERED: ANUSOL HC CREAM 30GM TOP PRN (18:40)
[2023-04-04] MEDS ORDERED: ACETAMINOPHEN TAB 650MG DOSE (2X325MG) PO PRN (18:40)
[2023-04-04] MEDS ORDERED: KETOROLAC 30 MG/ML 1ML VIAL IV ONE (19:00)
[2023-04-04] MEDS ORDERED: SLF 3 ML SYR IV PRN (19:15)
[2023-04-04] MEDS: ACETAMINOPHEN 500 MG TAB PO PRN (20:03)
[2023-04-04] MEDS ORDERED: SLF 3 ML SYR IV SCH (22:00)
[2023-04-05] MEDS ORDERED: diphenhydrAMINE 50MG/ML VIAL IV ONE (02:00)
[2023-04-05] MEDS ORDERED: IBUPROFEN 600MG TAB PO PRN (03:00)
[2023-04-05 06:00] VITALS: BP 95/51; O2SAT 98
[2023-04-05] MEDS: BUPRENORPHINE HCL 8MG SUBINGUAL TABLET SL SCH ×3 (07:15→18:19)
[2023-04-05] MEDS: PRENATAL VITAMINS CHEWABLE TABLET PO SCH (08:46)
[2023-04-05] MEDS: IBUPROFEN 800 MG TAB PO PRN ×2 (08:48→21:48)
[2023-04-05] MEDS: diphenhydrAMINE 25MG CAP PO PRN ×2 (11:51→21:48)
[2023-04-05 18:00] VITALS: BP 102/59; O2SAT 99
[2023-04-05] MEDS: ACETAMINOPHEN 500 MG TAB PO PRN (18:19)
[2023-04-06] MEDS: diphenhydrAMINE 25MG CAP PO PRN (03:18)
[2023-04-06 06:00] VITALS: BP 115/59; O2SAT 99
[2023-04-06] MEDS: IBUPROFEN 800 MG TAB PO PRN (06:22)
[2023-04-06] MEDS: BUPRENORPHINE HCL 8MG SUBINGUAL TABLET SL SCH ×2 (06:47→12:00)
[2023-04-06] MEDS ORDERED: MEASLES,MUMPS,RUBELLA VACCINE INJ (MMR-II) SC.IMMUN ONE (09:00)
[2023-04-06] MEDS: PRENATAL VITAMINS CHEWABLE TABLET PO SCH (10:15)
== END 2023-04-06 15:25 | disposition home or self-care (01) | DRG 560 ==
LOC: M LDI 07:50 → M OBS 20:25
PROVIDERS: ADMIT Advanced Practice Midwife; ATTEND Advanced Practice Midwife
PROC: 10E0XZZ Delivery of Products of Conception, External Approach (ICD-10-PCS; principal; 2023-04-04)
PROC: 10907ZC Drainage of Amniotic Fluid, Therapeutic from Products of Conception, Via Natural or Artificial Opening (ICD-10-PCS; 2023-04-04)
PROC: 3E0P7VZ Introduction of Hormone into Female Reproductive, Via Natural or Artificial Opening (ICD-10-PCS; 2023-04-04)
DX: O09.43 Supervision of pregnancy with grand multiparity, third trimester (principal); B19.20 Unspecified viral hepatitis C without hepatic coma; Z37.0 Single live birth; Z3A.39 39 weeks gestation of pregnancy; Z11.3 Encounter for screening for infections with a predominantly sexual mode of transmission; O09.523 Supervision of elderly multigravida, third trimester

== ENCOUNTER 2024-01-23 17:02 | Emergency (ER) | payer MEDICAID, OTHER ==
[~2024-01-23] VITALS: Ht 157.5 cm; Wt 68.2 kg
[~2024-01-23 17:02] MED LIST changes: +[UNRECOGNIZED DRUG - OTHER] SL; +subutex SL
[2024-01-23] MEDS: NORCO, ANEXSIA 5/325MG TABLET (HYDROcodone/ACETAMINOPHEN) PO ONE (20:16)
[2024-01-23] MEDS ORDERED: HYDR-3713 PO (20:40)
[2024-01-23 20:48] VITALS: BP 130/72; TEMP 98.2; O2SAT 99
== END 2024-01-23 20:54 | disposition home or self-care (01) ==
LOC: M ED 17:02
DX: S82.831A Other fracture of upper and lower end of right fibula, initial encounter for closed fracture (principal); W10.8XXA Fall (on) (from) other stairs and steps, initial encounter; Y92.9 Unspecified place or not applicable; Y93.9 Activity, unspecified; Y99.9 Unspecified external cause status

== ENCOUNTER 2024-02-09 12:56 | Outpatient (RCR) | payer OTHER ==
[~2024-02-09 12:56] MED LIST changes: +HYDR-3713 PO
== END 2024-03-03 ==
LOC: M PT 12:56
PROVIDERS: ATTEND Orthopaedic Surgery
DX: S82.64XA Nondisplaced fracture of lateral malleolus of right fibula, initial encounter for closed fracture (principal)

== ENCOUNTER → 2025-03-21 | Outpatient (CLI) | payer OTHER ==
[2025-03-21 15:09] LABS: Trichomonas vaginalis (AMP) NOT DETECTED (NEGATIVE)
[2025-03-21 15:13] LABS: TOTAL PROTEIN,RANDOM URINE < 6.0 MG/DL (0.0-14.0)
[2025-03-21 15:33] LABS: GC DNA AMPLIFICATION NEGATIVE (NEGATIVE)
== END ==
LOC: M PLALAB 12:09
PROVIDERS: ATTEND Advanced Practice Midwife
DX: O09.521 Supervision of elderly multigravida, first trimester (principal); Z3A.00 Weeks of gestation of pregnancy not specified

== ENCOUNTER → 2025-05-20 | Outpatient (CLI) | payer OTHER ==
[2025-05-20 16:31] LABS: PLATELET COUNT, AUTOMATED 182 10^3/uL (150-450)
[2025-05-20 16:45] LABS: LDH LACTATE DEHYDROGENASE 149 U/L (120-246)
[2025-05-20 16:46] LABS: ALT/SGPT 11 U/L (7.0-40); AST/SGOT 12 U/L (<34); CREATININE FOR GFR 0.62 MG/DL (0.55-1.30); GLOMERULAR FILTRATION RATE > 90.0 (>60)
[2025-05-20 17:13] LABS: HIV 1&2 SCREEN NEGATIVE (NEGATIVE)
[2025-05-20 17:32] LABS: HEPATITIS C VIRUS ABY INDEX 8.18 INDEX (<0.8)
[2025-05-22 21:53] LABS: HCV RNA QUANTITATION <15 NOT DETECTED IU/mL (NOT DETECTED); HCV RNA log10 <1.18 NOT DETECTED Log IU/mL (NOT DETECTED)
== END ==
LOC: M PLALAB 13:59
PROVIDERS: ATTEND Advanced Practice Midwife
DX: O09.521 Supervision of elderly multigravida, first trimester (principal); Z3A.00 Weeks of gestation of pregnancy not specified

== ENCOUNTER → 2025-05-23 | Outpatient (CLI) | payer OTHER | LOC: M WHC 07:34 | PROVIDERS: ATTEND Advanced Practice Midwife | DX: O09.522 Supervision of elderly multigravida, second trimester (principal); Z3A.20 20 weeks gestation of pregnancy ==

== ENCOUNTER → 2025-07-02 | Outpatient (CLI) | payer OTHER ==
[2025-07-02 13:36] LABS: PLATELET COUNT, AUTOMATED 172 10^3/uL (150-450)
[2025-07-02 14:01] LABS: GLUCOSE CHALLENGE TEST 1 HOUR 101 MG/DL (LESS THAN 140)
[2025-07-02 14:48] LABS: Trichomonas vaginalis (AMP) NOT DETECTED (NEGATIVE)
[2025-07-02 15:12] LABS: GC DNA AMPLIFICATION NEGATIVE (NEGATIVE)
[2025-07-02 15:55] LABS: HIV 1&2 SCREEN NEGATIVE (NEGATIVE)
[2025-07-02 16:15] LABS: HEPATITIS C VIRUS ABY INDEX 9.80 INDEX (<0.8)
[2025-07-05 09:33] LABS: HCV RNA QUANTITATION <15 NOT DETECTED IU/mL (NOT DETECTED); HCV RNA log10 <1.18 NOT DETECTED Log IU/mL (NOT DETECTED)
== END ==
LOC: M PLALAB 09:24
PROVIDERS: ATTEND Advanced Practice Midwife
DX: Z34.92 Encounter for supervision of normal pregnancy, unspecified, second trimester (principal)